=== PATIENT | female | born 1975 | race Caucasian/White ===

== ENCOUNTER 2016-09-29 05:54 | Day surgery (SDC) | payer BC ==
[2016-09-29] VITALS (28 sets, daily range): BP systolic 94–146; BP diastolic 51–89; PULSE 69–101; RESP 7–63; TEMP 97.1–99; O2SAT 90–98; Ht 157.5 cm; Wt 91.4 kg
[~2016-09-29] VITALS: Ht 157.5 cm; Wt 91.4 kg
[~2016-09-29 05:54] MED LIST: CETI10CA19 PO
[2016-09-29 06:36] LABS: BASOPHILS % (AUTO) 0.4 % (0-2); EOSINOPHILS # (AUTO) 0.1 T/MM3 (0-0.5); EOSINOPHILS % (AUTO) 1.9 % (0-4); HCT - HEMATOCRIT 39.3 % (36-46); HGB - HEMOGLOBIN 13.2 GM/DL (12-16); IMMATURE GRANULOCYTE # (AUTO) 0.01 T/MM3 (0.00-0.03); IMMATURE GRANULOCYTE % (AUTO) 0.2 % (0.0-0.5); LYMPHOCYTES # (AUTO) 1.3 T/MM3 (1-4.8); LYMPHOCYTES % (AUTO) 26.8 % (23-45); MEAN CORPUSCULAR HGB 29.1 UUG (26-34); MEAN CORPUSCULAR HGB CONC(MCHC 33.6 GM/DL (31-37); MEAN CORPUSCULAR VOLUME 86.8 UM3 (80-100); MEAN PLATELET VOLUME 9.3 UM3 (9.4-12.4); MONOCYTES # (AUTO) 0.3 T/MM3 (0-0.8); MONOCYTES % (AUTO) 5.6 % (0-9.0); NEUTROPHILS #(AUTO)-ABSOLUTE 3.1 T/MM3 (1.8-7.7); NEUTROPHILS % (AUTO) 65.1 % (33-66); RED BLOOD COUNT 4.53 M/MM3 (4.00-5.20); WBC - WHITE BLOOD COUNT 4.8 T/MM3 (4.5-11.0)
[2016-09-29] MEDS: LR 1,000 ML IV SCH ×2 (06:36→17:00)
[2016-09-29] MEDS ORDERED: BUPIVACAINE 0.25% (2.5mg/ml) INJ 30ml SDV ONE (06:44)
[2016-09-29] MEDS ORDERED: LIDOCAINE 1% (10mg/ml) 2ml SDV INJ ONE (07:00)
--- NOTE | 2016-09-29 07:06 | ANESPREOP ---
Anesthesia Record Date and Time DATE: 09/29/16 TIME: 0700 Proposed Surgical Procedure ROBOTIC ASSISTED TOTAL LAPAROSCOPIC HYSTERECTOMY Allergies: Coded Allergies: morphine (Verified Adverse Reaction, Mild, NOSE ITCHES, 09/29/16) Ht/Wt/BMI Height: 5 ' 2.00 " Weight: 89.400 kg BMI: 36.1 kg/m2 Vital Signs Date Time Temp Pulse Resp B/P Pulse Ox O2 Delivery O2 Flow Rate FiO2 09/29/16 06:10 98.5 101 20 146/89 96 Room Air Medications Inpatient Medications Current Medications Medications (Trade) Dose Ordered Sig/Gus Start Time Stop Time Status Last Admin Dose Admin Lactated Ringer's (Lactated Ringers) 1,000 ml @ 100 mls/hr Q10H 09/29/16 07:00 09/29/16 06:36 100 MLS/HR Cetirizine HCl (Zyrtec) 10 Mg Capsule, 1 CAP PO DAILY, (Reported) Last Taken: on 09/28/161999 Currently on Beta Kalina: No Medical/Surgical History Anesthesia PMH: Reports: Asthma (after 1st child, allergy to dogs and cats precipitated), Denies: *Dyspnea, Anesthesia Reactions (NO AIRWAY ISSUES), COPD, Cancer, Glaucoma, Malignant Hyperthermia, Pneumonia, Reflux, Renal Disease, Sleep Apnea, Tuberculosis Smoking Status: Never smoker Use Chewing Tobacco?: No Substance Use Type: does not use Alcohol Intake: none Last Drink: hours (ago) (8) HX of Last Menstrual Period: SEPTEMBER 2016 Past Surgical History Orthopedic Surgeries: Abdominal Surgeries: Genitourinary Surgeries: Cardiac Surgeries: Endocrine Surgeries: Reproductive Surgeries: Neurological Surgeries: Ear Surgeries: Nose Surgeries: Throat Surgeries: Other Surgeries: Yes - wisdom teeth removed in 1994 Anesthesia Adverse Reactions: FOUND none Family Hx of Anesthesia Advers: none Hx of Motion Sickness: No Pertinent Findings Laboratory Tests 09/29/16 06:27 Test 09/29/16 06:27 Human Chorionic Gonadotropin, Qual Negative (NEGATIVE) Physical Exam Respiratory: Lungs clear Cardiovascular: FOUND Regular rate, rhythm Airway Assessment Mallampati Score: II TMD: 3 Fingerbreadths Neck Extension: Good Overall Assessment: No Airway Concerns ASA: 2 Plan Anesthesia Plan: GETA Discussion Discussed risks/options/alternatives of anesthesia and questions answered. Patient consents. Nursing pain assessment noted. Present: Parent Attestation Statement Prior to the delivery of any anesthetic medication, I examined the patient, developed the plan, obtained the patient's consent and discussed the risk and benefits of the procedure with the patient/guardian. ARCHIE FERNANDEZ COIN MACHINE COLLECTOR Sep 29, 2016 06:58
[2016-09-29] MEDS ORDERED: FENTANYL 250mcg/5ml INJECTION ONE (07:12)
[2016-09-29] MEDS ORDERED: MIDAZOLAM 2mg/2ml INJECTION ONE (07:12)
[2016-09-29] MEDS ORDERED: LIDOCAINE 2% (20mg/ml) 5ml PF SDV ONE (07:12)
[2016-09-29] MEDS ORDERED: ROCURONIUM 50mg/5ml INJECTION IV ONE (07:12)
[2016-09-29 07:15] LABS: ANION GAP 11 MEQ/L (5-15); BUN/CREATININE RATIO 11 RATIO (6-26); CALCIUM 9.1 MG/DL (8.4-10.2); CHLORIDE 111 MEQ/L (98-107); CO2 - CARBON DIOXIDE 22 MEQ/L (22-30); CREATININE 0.7 MG/DL (0.7-1.2); GLOMERULAR FILTRATION RATE 94; GLUCOSE 93 MG/DL (65-110); POTASSIUM 4.1 MEQ/L (3.6-5); SODIUM 144 MEQ/L (134-144)
[2016-09-29] MEDS ORDERED: NORMAL SALINE IV ONE (07:15)
[2016-09-29] MEDS ORDERED: CEFOXITIN IV ONE (07:15)
[2016-09-29] MEDS ORDERED: ONDANSETRON 4mg/2ml INJECTION ONE (07:19)
[2016-09-29] MEDS ORDERED: DEXAMETHASONE 4mg/ml - 1ml INJECTION ONE ×2 (07:19→07:44)
[2016-09-29] MEDS ORDERED: DiphenhydrAMINE 50 MG/ML INJECTION ONE (07:19)
[2016-09-29] MEDS ORDERED: CEFOXITIN 1 GM IV ONE (07:30)
[2016-09-29] MEDS ORDERED: HYDROMORPHONE 2mg/ml INJECTION ONE (08:03)
[2016-09-29] MEDS ORDERED: SALINE FLUSH 10ml SYRINGE ONE (08:26)
[2016-09-29] MEDS ORDERED: EPHEDRINE SULFATE 50mg/ml INJECTION ONE (08:26)
[2016-09-29] MEDS ORDERED: PROPOFOL 200mg 20 ML IV ONE (09:46)
[2016-09-29] MEDS ORDERED: GLYCOPYRROLATE 0.4mg/2ml INJECTION ONE (09:58)
[2016-09-29] MEDS ORDERED: NEOSTIGMINE 10mg/10ml INJECTION ONE (09:58)
[2016-09-29] MEDS ORDERED: DimenhyDRINATE 50 MG in D5LR 1,000 ML IV SCH (10:21)
--- NOTE | 2016-09-29 10:21 | GYNOPNOTE1 ---
FURNITURE LUMBER PRODUCTION WORKER Postoperative Note Date of Operation: 09/29/16 Preoperative Diagnosis: Menorrhagia, Dysmenorrhea Postoperative Diagnosis: Same as Preoperative Hysterectomy: RALH Bilateral Salpingectomy Surgeon: Wilver Hernandez MD Anesthesia Provider: Frederick Puri CRNA Anesthesia Type: general Estimated Blood Loss: 100cc WILVER HERNANDEZ MD Sep 29, 2016 10:21
[2016-09-29] MEDS ORDERED: HYDROMORPHONE 2mg/ml INJECTION IV PRN ×2 (10:30→11:00)
[2016-09-29] MEDS ORDERED: ONDANSETRON 4mg/2ml INJECTION IV PRN ×2 (10:30→11:00)
[2016-09-29] MEDS ORDERED: METOCLOPRAMIDE 10mg/2ml INJECTION IV PRN (10:30)
--- NOTE | 2016-09-29 10:58 | ANESPO ---
Post-Op Note Date 09/29/16 Time: 10:57 Status Pt Participated in Evaluation: Pt participated in person Vital Signs Date Time Temp Pulse Resp B/P Pulse Ox O2 Delivery O2 Flow Rate FiO2 09/29/16 10:25 97.1 99 17 107/62 96 Room Air Respiratory Function: Airway patent Cardiovascular Function: Regular pulse Mental Status: Alert/oriented Pain Level Intensity: 4 Hydration: IV infusing, Nausea (very slight- antiemetics given) Complications during Recovery None apparent Follow-Up Instructions Instructions Per Surgeon ARCHIE FERNANDEZ CRNA Sep 29, 2016 10:57
--- NOTE | 2016-09-29 11:32 | NUR ---
Pt to room Pt transferred to room at this time via cart. Pt transferred self from cart to bed. VS stable on RA. Post op VS started. Pt denies nausea, and rates pain a 2/10. Bandages in place to incisions, drainage circled. Dad present in room. Khan catheter to dependent drainage. Side rails up X2, call light w/in reach, bed alarm on.
[2016-09-29] MEDS: HYDROCODONE/APAP 5 mg/325 mg TABLET PO PRN ×2 (12:01→16:35)
--- NOTE | 2016-09-29 12:01 | NUR ---
Pain Pt rating pain in the lower abdomen a 2/10 at this time. 10mg PRN [place] was given at this time after Pt had intake of Jell-o and tolerated well with no nausea. VS stable on RA. Khan to dependent drainage with adequate output. Will continue to monitor.
[2016-09-29] MEDS: SIMETHICONE 80 MG CHEWABLE TABLET PO SCH ×3 (12:56→22:33)
[2016-09-29] MEDS: IBUPROFEN 800 MG TABLET PO PRN ×2 (13:31→22:40)
--- NOTE | 2016-09-29 15:42 | OPNOTEF ---
DATE OF SURGERY: 09/29/2016 PREOPERATIVE DIAGNOSIS: 40-year-old white female, G3, P3, with menorrhagia and dysmenorrhea. POSTOPERATIVE DIAGNOSIS: Same PROCEDURE: Robotic-assisted hysterectomy and bilateral salpingectomy. EBL 100 ml ANESTHESIA: General endotracheal by Frederick Puri CRNA SURGEON: Wilver Miller MD COMPLICATIONS: None. DESCRIPTION OF PROCEDURE After adequate general anesthesia and intubation, the patient was prepped and draped in the usual robotic fashion. A heavy weighted speculum was placed posteriorly in the vaginal tract and then a Khan catheter was inserted to drain the bladder. A [place] retractor was used anteriorly to visualize the cervix which was grasped at the 12 o'clock position with a single-tooth tenaculum. The uterus sounded to 10 cm. It was anteverted. A [id number] suture of 0 Vicryl was placed at the 12 o' clock position and tied in place. Then the [place] uterine manipulator was inserted through the cervix and the balloon was inflated. The large cup was then brought down over the cervix with the sutures being passed through it. Then the [place] and the posterior heavy weighted speculum were removed and the uterus was able to be palpated abdominally. I then changed gloves and approached the abdomen. An area was anesthetized with 0.25% Marcaine several centimeters superior to the umbilicus in the midline and then a #11 blade was used to make a 12 mm incision and then the abdomen was tented and a Veress needle was inserted. Saline drop test confirmed intraabdominal placement and then the abdomen was insufflated. Veress needle was then removed and then a 12 mm bladeless trocar was inserted. Once it was inside the abdomen, the sheath was left in place and the trocar was removed and the camera was inserted confirming intraabdominal placement and no obvious organ injury. Then the inferior cuff on the 12 mm trocar was inflated. I then placed the 8 mm robotic trocars bilaterally 12 cm lateral to the umbilicus. I anesthetized with Marcaine and made an incision with an 11-blade and then placed the ports under direct vision. This was repeated in the left upper quadrant for the orthopaedic physician assistant port as well. Once all the ports were in place and advanced to the appropriate markings, then the bed was lowered and the patient was placed in 30 degrees Trendelenburg. We then backed it off to 23 degrees Trendelenburg and I still had an adequate view so the robot was brought forward and docked and I placed the bipolar fenestrated in the left arm and the monopolar scissors in the right arm. Ovaries looks normal. Liver edge was smooth. I did not see the appendix. Then I removed my gown and approached the console to begin the hysterectomy. The bladder was already drained. The uterus was elevated and I started by identifying the ureters bilaterally. Then I cauterized the round ligaments bilaterally and transected them and then opened up the broad ligament. Then I dissected the bladder off the lower uterine segment by creating a plane, then careful dissection. I filled the bladder with fluid to discern the edges and I dissected until the edge of the bladder was well below the cuff. Then I further dissected open the broad ligaments. The patient desired both her tubes to be removed, so I removed them with cautery. Once I had free the tubes bilaterally, then I began skeletonizing the sides until I could identify the uterine vessels bilaterally. I could clearly see the posterior portion of the cuff and the anterior portion as I dissected off the bladder from the anterior portion of the uterus. I next cauterized the uterine vessels bilaterally, first by sealing them close to the uterus and then cauterizing down to the level of the cuff. Once the blood supply had been adequately cauterized, it was transected with monopolar scissors. I dissected both sides free until I was clear all the way around the cuff. Once it was clear all the way around, then I began dissecting through the vaginal cuff to the VCare cup. I did this with monopolar scissors, starting anteriorly and first going to the right and then left until the uterus and tubes were completely free. They then were delivered vaginally and sent to pathology. We then copiously irrigated the pouch of [place] and the vaginal cuff and a slight amount of cautery was used to gain some hemostasis on the vaginal cuff. Then the cuff closure was begun. I used an vlock 2.0 suture for the corner stitch bilaterally, incorporating the uterosacral ligament. This was for vaginal cuff suspension. Then starting on the left side and closing the vaginal cuff, coming across to the right and then I used another and began on the right and went back across towards the left. This essentially made a double-layer closure in the middle of the vaginal cuff. I used large bites in the vaginal cuff because I was able to dissect the bladder down so well. Then additional irrigation was used to cleanse the area. Cuff was hemostatic and cleansed and the ureters were identified bilaterally and peristalsing again. I filled the bladder with fluid and no bladder injury or leakage was noted. This now being complete and the ovaries being reexamined bilaterally and found to be hemostatic, I was then ready to scrub back in and undock the robot. I reconfirmed hemostasis prior to removing the instruments. Then I removed each of the 8 mm ports under direct vision and they were hemostatic. Then I removed the 12 mm port and began closure. The fascia was closed in a [id number] fashion with 2-0 Vicryl on the 12 mm port. 3-0 Vicryl was used to close the skin on all four ports. Additional Marcaine was placed. Then I went vaginally and examined the vaginal cuff and it was hemostatic. Urine was clear and free flowing. I brought the patient out of Trendelenburg and flattened her. At this point the surgery was complete and the patient awoke and went to Recovery in stable condition. Uterus, tubes and ovaries were sent to surgical pathology. PACO
[2016-09-29 16:09] LABS: HCT - HEMATOCRIT 40.7 % (36-46); HGB - HEMOGLOBIN 13.5 GM/DL (12-16); MEAN CORPUSCULAR HGB 29.2 UUG (26-34); MEAN CORPUSCULAR HGB CONC(MCHC 33.2 GM/DL (31-37); MEAN CORPUSCULAR VOLUME 87.9 UM3 (80-100); MEAN PLATELET VOLUME 9.4 UM3 (9.4-12.4); RED BLOOD COUNT 4.63 M/MM3 (4.00-5.20); WBC - WHITE BLOOD COUNT 10.1 T/MM3 (4.5-11.0)
--- NOTE | 2016-09-29 17:40 | NUR ---
Nausea Pt stated "I had a slight feeling of nausea all of a sudden, but it has resolved." This RN offered nausea medication at this time, Pt stated "I feel fine now it was just a sudden yazan feeling and then it was gone." This RN discussed nausea medication being available to Pt if she needs it to let this RN know. Will continue to monitor.
--- NOTE | 2016-09-29 18:00 | NUR ---
End of shift summary Pt A&OX3. VS stable on RA. Pt given PRN [place] and Motrin as ordered for pain control. Pt now rating pain a 1/10 and resting in bed. Pt has been up to the chair and ambulated in the hallway and tolerated well. Khan in place with adequate output. Bandages still in place to incisions on the abdomen. Call light w/in reach, side rails up X2, bed alarm on.
--- NOTE | 2016-09-29 18:40 | GSPOSTPN ---
Postoperative Progress Note 09/29/16 PO check vss af hgb increased great pain control no c/o q&a-krb WARD HERNANDEZ MD Sep 29, 2016 18:40
[2016-09-29] MEDS: D5LR 1,000 ML IV SCH (19:09)
[2016-09-30] VITALS: BP 125/64; PULSE 103; TEMP 97.8; O2SAT 97
[2016-09-30] MEDS: D5LR 1,000 ML IV SCH ×2 (02:11→06:21)
[2016-09-30] MEDS: HYDROCODONE/APAP 5 mg/325 mg TABLET PO PRN (06:19)
--- NOTE | 2016-09-30 06:22 | NUR ---
END OF SHIFT SUMMARY: D5LR infuses at 150 cc/hr. Urine is clear light yellow color. Khan cathater removed at 0600. Ambulated in hallway last evening. No longer feels nauseated. Motrin 800 mg. given at HS last night. Slept well. NORCO 2 tabs given this morning for abd. pain. Bandaids cover laproscopic surgery gutierrez. Shadow of drainage seen thru bandaids have not extended futher than the clif from yesterday. Pt. taking food and fluid well.
[2016-09-30 07:14] VITALS: BP 123/64; PULSE 98; RESP 16; TEMP 96.7; O2SAT 96
[2016-09-30] MEDS ORDERED: DOCUSATE CALCIUM 240 MG CAPSULE PO SCH (09:00)
[2016-09-30] MEDS: IBUPROFEN 800 MG TABLET PO PRN (09:40)
[2016-09-30] MEDS: SIMETHICONE 80 MG CHEWABLE TABLET PO SCH (09:40)
--- NOTE | 2016-09-30 10:00 | GSPOSTPN ---
Postoperative Progress Note 09/30/16 doing well vss af pain well controlled disc dc instructions q&a-krb WARD HERNANDEZ MD Sep 30, 2016 10:00
[2016-09-30] MEDS ORDERED: HYDR-4246 PO (10:03)
--- NOTE | 2016-09-30 11:30 | NUR ---
Discharge Pt discharged home to care of family. Discharge instructions reviewed and hard copies given. Pt verbalized understanding of Activity, s/sx to report, pain management, diet, and follow up appointment. Pt instructed to take pain meds as prescribed, as taking more/more frequently can cause sedation and increased respiratory depression. Pt states pain is tolerable at a 1/10. Denies SOA/difficulty breathing, CP or N/V. Pt wheeled to front entrance to mother's vehicle.
--- NOTE | 2016-09-30 11:55 | NUR ---
BERTHA WHITING IS 1. NO FURTHER INTERVENTION NEEDED. Addendum: 09/30/16 at 1156 by SPEEDY OJEDA Amended: Links added.
--- NOTE | 2016-09-30 11:56 | NUR ---
CM SPOKE WITH PT. INTRODUCED SELF, EXPLAINED ROLE, PROVIDED CONTACT INFO. PT STATED SHE LIVES IN [place], BUT HER DC PLAN IS GOING TO BE TO STAY WITH HER MOTHER FOR A FEW DAYS OR SO (MOTHER ALSO LIVES IN [place]). MOTHER WILL PICK HER UP AT TIME OF DC. PT DENIED HAVING ANY DC QUESTIONS/NEEDS. Addendum: 09/30/16 at 1157 by SPEEDY OJEDA Amended: Links added.
== END 2016-09-30 11:30 | disposition home or self-care (01) ==
LOC: SRG 05:54 → SCU 05:54
PROVIDERS: ATTEND Obstetrics & Gynecology
DX: N72 Inflammatory disease of cervix uteri (principal); D25.9 Leiomyoma of uterus, unspecified; J30.2 Other seasonal allergic rhinitis; Z79.899 Other long term (current) drug therapy; Z79.51 Long term (current) use of inhaled steroids
CPT/HCPCS: 36415; 58552; 80048; 84703; 85025; 85027; 86850; 86900; 86901; J0330; J0694; J1100; J1170; J1200; J1240; J2250; J2405; J2704; J2710; J3010; J7030; J7120; J7121; S0020; S2900